=== PATIENT | female | born 1995 | race Caucasian/White ===

== ENCOUNTER 2020-06-05 08:57 | Emergency (ER) | payer BC ==
[2020-06-05] MEDS ORDERED: Acetaminophen/oxyCODONE 325-5 MG Tab PO ONE (10:49)
[2020-06-05] MEDS ORDERED: Bacitracin/Neomycin/Polymyxin B Oint 0.9 GM U/D Packet TOP ONE ×2 (10:59→12:33)
[2020-06-05] MEDS ORDERED: Diphtheria,Pertussis(Acell),Tetanus Vaccine 0.5 ML Syringe IM ONE (12:34)
--- NOTE | 2020-06-06 08:33 | EDM.PDOC ---
ED HPI GENERAL MEDICAL PROBLEM - General Chief Complaint: Laceration Stated Complaint: LACERATION Time Seen by Provider: 06/05/20 09:14 Source of Information: Reports: Patient History Limitations: Reports: No Limitations - History of Present Illness INITIAL COMMENTS - FREE TEXT/NARRATIVE: Elmira is a 24 yo female who presents to the ED with concerns of partial amputation to her right ring and pinky finger. She states she was walking into school carrying a crock pot into school and slipped on some black ice. States she didn't even know her fingers were involved until she took her glove off. She isn't sure how it caused the injury as the crock pot is still intact. Unknown Tdap status. Finger-Ring Pain Score (Numeric/FACES): 7 Left Finger-Little Pain Score (Numeric/FACES): 7 - Related Data Allergies Allergy/AdvReac Type Severity Reaction Status Date / Time No Known Allergies Allergy Verified 06/05/20 09:05 Home Meds: Home Meds Escitalopram Oxalate 5 mg PO BEDTIME 06/05/20 [History] cephALEXin [Keflex] 500 mg PO BID #14 capsule 06/05/20 [Rx] Past Medical History HEENT History: Reports: Impaired Vision [employer] History: Reports: Polycystic Ovaries Musculoskeletal History: Reports: Other (See Below) Other Musculoskeletal History: Broken nose Psychiatric History: Reports: Anxiety Social & Family History - Tobacco Use Tobacco Use Status *Q: Never Tobacco User Second Hand Smoke Exposure: No - Caffeine Use Caffeine Use: Reports: Coffee, Soda Other Caffeine Use: daily use - Recreational Drug Use Recreational Drug Use: No ED ROS GENERAL - Review of Systems Review Of Systems: See Below Constitutional: Reports: No Symptoms HEENT: Reports: No Symptoms Respiratory: Reports: No Symptoms Cardiovascular: Reports: No Symptoms Endocrine: Reports: No Symptoms GI/Abdominal: Reports: No Symptoms : Reports: No Symptoms Musculoskeletal: Reports: Hand Pain Skin: Reports: Wound Neurological: Reports: No Symptoms Psychiatric: Reports: No Symptoms ED EXAM, SKIN/RASH Exam: See Below Exam Limited By: No Limitations General Appearance: Alert, No Apparent Distress ED SKIN PROCEDURES - Laceration/Wound Repair Right Anterior Distal Digit - 4th (Ring) Appearance: Irregular, Clean Distal NVT: Neuro & Vascular Intact, No Tendon Injury Anesthetic Type: Digital Local Anesthesia - Lidocaine (Xylocaine): 1% Plain Local Anesthetic Volume: 3cc Skin Prep: Chlorhexidine (Hibiciens), Providone-Iodine (Betadine), Sterile Drape Exploration/Debridement/Repair: Wound Explored, In a Bloodless Field, Explored to Base, Minimal Debridement, Multiple Flaps Aligned Closed with: Sutures Lac/Wound length In cm: 3 Suture Size: 5-0 # of Sutures: 10 Suture Type: Nylon, Interrupted Sterile Dressing Applied: Provider Tetanus Status Addressed: Yes Complications: No Right Anterior Distal Digit - 5th (Baby) Appearance: Irregular, Clean Distal NVT: Neuro & Vascular Intact, No Tendon Injury Anesthetic Type: Digital Local Anesthesia - Lidocaine (Xylocaine): 1% Plain Local Anesthetic Volume: 3cc Skin Prep: Chlorhexidine (Hibiciens), Providone-Iodine (Betadine) Exploration/Debridement/Repair: Wound Explored, Wound Margins Revised, Multiple Flaps Aligned Closed with: Sutures Lac/Wound length In cm: 3.5 Suture Size: 5-0 # of Sutures: 10 Sterile Dressing Applied: Provider Tetanus Status Addressed: Yes Complications: No Course - Vital Signs Last Recorded V/S: Last Vital Signs Temp 97.2 F 06/05/20 09:01 Pulse 90 06/05/20 09:01 Resp BP 118/81 06/05/20 09:01 Pulse Ox 98 06/05/20 09:01 - Orders/Labs/Meds Orders: Active Orders 24 hr Category Date Time Status Hand Comp Min 3V Rt [CR] Stat Exams 06/05/20 10:24 Taken Meds: Medications Discontinued Medications Generic Name Dose Route Start Last Admin Trade Name Freq PRN Reason Stop Dose Admin Diphtheria/Tetanus/Acell Pertussis 0.5 ml 06/05/20 12:34 06/05/20 12:42 Boostrix IM 06/05/20 12:35 0.5 ml .ONCE ONE Administration Lidocaine HCl 5 ml 06/05/20 09:16 06/05/20 10:01 Xylocaine-Mpf 1% INJECT 06/05/20 09:17 5 ml ONETIME ONE Administration Lidocaine HCl 5 ml 06/05/20 09:57 06/05/20 10:02 Xylocaine-Mpf 1% INJECT 06/05/20 09:58 5 ml ONETIME ONE Administration Neomycin/Polymyxin/Bacitracin 1 each 06/05/20 10:59 06/05/20 11:15 Triple Antibiotic Oint TOP 06/05/20 11:00 1 each ONETIME ONE Administration Neomycin/Polymyxin/Bacitracin 1 each 06/05/20 12:33 06/05/20 12:47 Triple Antibiotic Oint TOP 06/05/20 12:34 1 each ONETIME ONE Administration Oxycodone/Acetaminophen 1 tab 06/05/20 10:49 06/05/20 10:57 Percocet 325-5 Mg PO 06/05/20 10:50 1 tab ONETIME ONE Administration Departure - Departure Time of Disposition: 12:59 Disposition: Home, Self-Care 01 Clinical Impression: Partial traumatic transphalangeal amputation of right little finger Qualifiers: Encounter type: initial encounter Qualified Code(s): S68.626A - Partial traumatic transphalangeal amputation of right little finger, initial encounter Laceration of ring finger Qualifiers: Encounter type: initial encounter Damage to nail status: with damage Foreign body presence: without foreign body Laterality: right Qualified Code(s): S61.314A - Laceration without foreign body of right ring finger with damage to nail, initial encounter - Discharge Information Prescriptions: cephALEXin [Keflex] 500 mg PO BID #14 capsule Instructions: Laceration Care, Adult, [id number], Pain Medicine Instructions, [id number], Nail Bed Injury, [id number] Referrals: PCP,None [Primary Care Provider] - Forms: ED Department Discharge Additional Instructions: 1) Keflex 500mg twice a day for 7 days 2) Percocet 5/325mg every 6 hours as needed for pain 3) Will set up with hand specialist 4) Keep wounds clean and dry for 48 hours, may change dressings daily 5) Watch for any signs of infection; increased redness, swelling, drainage 6) Call if any questions [phone] 7) Tdap updated today, last given prior 04/04/09 Sepsis Event Note (ED) - Evaluation Sepsis Screening Result: No Definite Risk - Problem List & Annotations (1) Laceration of ring finger SNOMED Code(s): 166565397 Code(s): S61.218A - LACERATION W/O FB OF FINGER W/O DAMAGE TO NAIL, INIT Status: Acute Qualifiers: Encounter type: initial encounter Damage to nail status: with damage Foreign body presence: without foreign body Laterality: right Qualified Code(s): S61.314A - Laceration without foreign body of right ring finger with damage to nail, initial encounter (2) Partial traumatic transphalangeal amputation of right little finger SNOMED Code(s): 21895169, [id number], [id number] Code(s): S68.626A - PARTIAL TRAUMATIC TRNSPHAL AMP OF R LITTLE FINGER, INIT Status: Acute Qualifiers: Encounter type: initial encounter Qualified Code(s): S68.626A - Partial traumatic transphalangeal amputation of right little finger, initial encounter - My Orders Last 24 Hours: My Active Orders 06/05/20 10:24 Hand Comp Min 3V Rt [CR] Stat - Assessment/Plan Last 24 Hours: My Active Orders 06/05/20 10:24 Hand Comp Min 3V Rt [CR] Stat Plan: Both finger closed today. Will set up with hand specialist for further evaluation. Discussed into detail concerns of pinky partial amputation of the distal tip. Antibiotic as directed. Tdap updated today. Pain medication as directed. Patient discharged in satisfactory condition. No current discomfort at discharge.
== END 2020-06-05 12:59 | disposition home or self-care (01) ==
LOC: CC.ED 08:57
DX: S68.626A Partial traumatic transphalangeal amputation of right little finger, initial encounter (principal); S61.314A Laceration without foreign body of right ring finger with damage to nail, initial encounter; F41.9 Anxiety disorder, unspecified; Z23 Encounter for immunization; Z79.899 Other long term (current) drug therapy; W00.0XXA Fall on same level due to ice and snow, initial encounter; Y93.01 Activity, walking, marching and hiking; Y92.219 Unspecified school as the place of occurrence of the external cause
CPT/HCPCS: 12002; 73130; 90471; 90715; 99283; A9270; J2001